=== PATIENT | female | born 1995 | race African-American/Black ===

== ENCOUNTER 2018-10-30 23:43 | Emergency (ER) | payer MEDICAID ==
--- NOTE | 2018-10-30 23:55 | Emergency Department Record ---
History of Present Illness - General Chief Complaint: Difficulty Breathing Stated Complaint: RIB PAIN/NAUSEA/HARD TO BREATHE Time Seen by Provider: 10/30/18 23:51 Source: Patient Mode of Arrival: Ambulatory Limitations: No limitations - History of Present Illness Onset/Timin -: Week(s) Severity: Moderate Severity scale (1-10): 9 Quality: Aching Consistency: Constant Improves With: Nothing Worsens With: Coughing - Related Data Home Medications Medication Instructions Recorded Confirmed Last Taken No Home Med [NO HOME MEDS] 10/30/18 10/30/18 Unknown Allergies Allergy/AdvReac Type Severity Reaction Status Date / Time No Known Drug Allergies Allergy Verified 10/30/18 23:52 Travel Screening - Travel/Exposure Within Last 30 Days Have you traveled within the last 30 days?: No - Travel/Exposure Within Last Year Have you traveled outside the [place] in the last year?: No - Additonal Travel Details Have you been exposed to anyone with a communicable illness?: No - Travel Symptoms Symptom Screening: None Review of Systems Constitutional: Denies: Chills, Fever, Malaise, Weakness Eyes: Denies: Eye discharge ENT: Denies: Congestion, Ear pain, Throat pain Respiratory: Reports: Dyspnea. Denies: Cough, Hemoptysis, Stridor, Wheezes Cardiovascular: Reports: Chest pain (rib pain on the right). Denies: Edema, Palpitations, Syncope Endocrine: Denies: Fatigue, Polydipsia, Polyuria Gastrointestinal: Reports: Nausea. Denies: Abdominal pain, Diarrhea, Vomiting Genitourinary: Denies: Dysuria, Urgency Musculoskeletal: Denies: Arthralgia, Back pain, Myalgia Skin: Denies: Bruising, Change in color, Rash Neurological: Denies: Headache, Numbness, Weakness Psychiatric: Denies: Anxiety Hematological/Lymphatic: Denies: Easy bleeding, Easy bruising Past Medical History - SOCIAL HISTORY Smoking Status: Never smoker Alcohol Use: None Drug Use: Occasional Drug Use Detail:: Marijuana - RESPIRATORY Hx Respiratory Disorders: Yes Hx Asthma: Yes - CARDIOVASCULAR Hx Cardio Disorders: Yes Comment:: murmur - NEURO Hx Neuro Disorders: Yes Hx Headaches: Yes - GI Hx GI Disorders: Yes Hx Reflux: Yes - Hx Genitourinary Disorders: No - ENDOCRINE Hx Endocrine Disorders: No - MUSCULOSKELETAL Hx Musculoskeletal Disorders: No - PSYCH Hx Psych Problems: Yes Hx Anxiety: Yes - HEMATOLOGY/ONCOLOGY Hx Hematology/Oncology Disorders: Yes Hx Anemia: Yes Hx Cancer: No Family Medical History Any Significant Family History?: Yes Physical Exam - General General Appearance: Alert, Oriented x3, Cooperative, No acute distress Limitations: No limitations - Head Head exam: Atraumatic, Normal inspection - Eye Eye exam: Normal appearance, PERRL. negative: Conjunctival injection, Scleral icterus - ENT ENT exam: Normal exam, Mucous membranes moist Ear exam: Normal external inspection Nasal Exam: Normal inspection Mouth exam: Normal external inspection Teeth exam: Normal inspection Throat exam: Normal inspection - Neck Neck exam: Normal inspection, Full ROM. negative: Lymphadenopathy, Tenderness - Cardiovascular Cardiovascular Exam: Regular rate, Normal rhythm, Normal heart sounds. negative: Diastolic murmur, Systolic murmur, Tachycardia Peripheral Pulses: 2+: Radial (R), Radial (L) - GI/Abdominal GI/Abdominal exam: Soft. negative: Distended, Guarding, Rebound, Rigid, Tenderness - Rectal Rectal exam: Deferred - exam: Deferred - Extremities Extremities exam: Normal inspection, Full ROM, Normal capillary refill. negative: Tenderness - Back Back exam: Denies: CVA tenderness (R), CVA tenderness (L) - Neurological Neurological exam: Alert, Oriented X3 - Psychiatric Psychiatric exam: Normal affect, Normal mood. negative: Agitated, Anxious - Skin Skin exam: Dry, Intact, Normal color, Warm Course Vital Signs 10/30/18 23:49 Temperature 98.6 F Pulse Rate [ 59 L Pulse Ox Probe] Respiratory 24 Rate Blood Pressure 125/74 [Left Arm] Pulse Ox 98 - Reevaluation(s) Reevaluation #1: Vitals reviewed No fever, tachycardia, or hypoxia 10/30/18 23:52 Disposition Quality - Blood Pressure Screening Does Patient Have Any of the Following: No Blood Pressure Classification: Pre-Hypertensive BP Reading Systolic Measurement: 125 Diastolic Measurement: 74 Screening for High Blood Pressure: < Pre-Hypertensive BP, F/U Documented > [G8950]
[2018-10-31] MEDS ORDERED: ONDANSETRON HCL IV 4 MG/2 ML VIAL IVP ONE (00:07)
[2018-10-31] MEDS ORDERED: 0.9 % SODIUM CHLORIDE 1,000 ML BAG IV ONE (00:07)
[2018-10-31] MEDS ORDERED: KETOROLAC 30 MG/ML VIAL IVP ONE (00:07)
--- NOTE | 2018-10-31 00:13 | Emergency Department Record ---
History of Present Illness - General Chief Complaint: Difficulty Breathing Stated Complaint: RIB PAIN/NAUSEA/HARD TO BREATHE Time Seen by Provider: 10/30/18 23:51 Source: Patient Mode of Arrival: Ambulatory Limitations: No limitations - History of Present Illness Initial Comments: 22 yo female presents with right sided abdominal pain for two weeks. The pain started mild two weeks ago and gradually has worsened. She for the first time vomited tonight. No fevers. The pain is in the RLQ to periumbilical area. She denies pain deeper in the pelvic area or suprapubic. The pain is only on the right. At times it shoots upward under her ribs on right. No fever. She denies vaginal bleeding or discharge. She was treated for Chlamydia in August and had follow up negative testing. No history of abdominal surgery. MD Complaint: Abdominal pain Onset/Timin -: Week(s) (2) Location: RLQ Radiation: RUQ, RLQ Migration to: RUQ, RLQ Severity: Moderate Severity scale (1-10): 9 Quality: Aching, Sharp, Stabbing Consistency: Constant Improves With: Rest Worsens With: Movement Associated Symptoms: Nausea - Related Data LMP Date: 09/10/18 LMP (females 10-50): 2 months ago Previous Rx's Medication Instructions Recorded Naproxen [Naprosyn] 500 mg PO Q12H #30 tab. 10/31/18 Ondansetron [Zofran Odt] 4 mg PO Q8H #15 tabmaria fernanda 10/31/18 Allergies Allergy/AdvReac Type Severity Reaction Status Date / Time No Known Drug Allergies Allergy Verified 10/30/18 23:52 Travel Screening - Travel/Exposure Within Last 30 Days Have you traveled within the last 30 days?: No - Travel/Exposure Within Last Year Have you traveled outside the [place] in the last year?: No - Additonal Travel Details Have you been exposed to anyone with a communicable illness?: No - Travel Symptoms Symptom Screening: None Review of Systems Constitutional: Denies: Chills, Fever, Malaise, Weakness Eyes: Denies: Eye discharge ENT: Denies: Congestion, Ear pain, Throat pain Respiratory: Denies: Cough, Dyspnea, Hemoptysis, Stridor, Wheezes Cardiovascular: Reports: Chest pain (occasionally the right sided abdominal pain shoots upward under the right ribs). Denies: Dyspnea on exertion, Edema, Palpi tations, Syncope Endocrine: Denies: Fatigue, Polydipsia, Polyuria Gastrointestinal: Reports: Diarrhea (2-3 episodes in the last ), Nausea. Denies: Abdominal pain, Vomiting Genitourinary: Reports: Abnormal menses. Denies: Dysuria, Frequency, Hematuria, Urgency Musculoskeletal: Denies: Arthralgia, Back pain, Myalgia Skin: Denies: Bruising, Change in color, Rash Neurological: Denies: Headache, Numbness, Weakness Psychiatric: Denies: Anxiety Hematological/Lymphatic: Denies: Easy bleeding, Easy bruising Past Medical History - SOCIAL HISTORY Smoking Status: Never smoker Alcohol Use: None Drug Use: Occasional Drug Use Detail:: Marijuana - RESPIRATORY Hx Respiratory Disorders: Yes Hx Asthma: Yes - CARDIOVASCULAR Hx Cardio Disorders: Yes Comment:: murmur - NEURO Hx Neuro Disorders: Yes Hx Headaches: Yes - GI Hx GI Disorders: Yes Hx Reflux: Yes - Hx Genitourinary Disorders: No - ENDOCRINE Hx Endocrine Disorders: No - MUSCULOSKELETAL Hx Musculoskeletal Disorders: No - PSYCH Hx Psych Problems: Yes Hx Anxiety: Yes - HEMATOLOGY/ONCOLOGY Hx Hematology/Oncology Disorders: Yes Hx Anemia: Yes Hx Cancer: No Family Medical History Any Significant Family History?: Yes Physical Exam - General General Appearance: Alert, Oriented x3, Cooperative, No acute distress Limitations: No limitations - Head Head exam: Atraumatic, Normocephalic, Normal inspection - Eye Eye exam: Normal appearance, PERRL. negative: Conjunctival injection, Scleral icterus - ENT ENT exam: Normal exam Ear exam: Normal external inspection Nasal Exam: Normal inspection Mouth exam: Normal external inspection - Neck Neck exam: Normal inspection - Respiratory Respiratory exam: Normal lung sounds bilaterally. negative: Accessory muscle use, Chest wall tenderness, Decreased breath sounds, Prolonged expiratory, Respiratory distress, Rhonchi, Stridor, Wheezes - Cardiovascular Cardiovascular Exam: Regular rate, Normal rhythm, Normal heart sounds - GI/Abdominal GI/Abdominal exam: Soft, Tenderness (tender periumbilical on the right and RLQ, the remainder of the abdomen is very soft and non tender, no distension). negative: Distended - Rectal Rectal exam: Deferred - exam: Deferred - Extremities Extremities exam: Normal inspection. negative: Pedal edema - Back Back exam: Reports: CVA tenderness (R), Tenderness. Denies: CVA tenderness (L), Paraspinal tenderness - Neurological Neurological exam: Alert, Oriented X3 - Psychiatric Psychiatric exam: Normal affect, Normal mood - Skin Skin exam: Dry, Intact, Normal color, Warm Course Vital Signs 10/30/18 23:49 Temperature 98.6 F Pulse Rate [ 59 L Pulse Ox Probe] Respiratory 24 Rate Blood Pressure 125/74 [Left Arm] Pulse Ox 98 - Reevaluation(s) Reevaluation #1: The vitals were reviewed. No tachycardia, hypoxia or fever 10/31/18 00:50 The labs results were reviewed There are no acute significant abnormalities of the CBC There are no acute significant abnormalities of the CMP The UA was reviewed. No signs of infection or significant acute abnormality The HCG is negative 10/31/18 01:[address] findings. No acute findings. Bilateral renal cysts noted. 10/31/18 01:41 [facility] records were reviewed from July. The patient presented with RLQ at that time as well. CT and US of the pelvis were normal. There are no obvious physical examination findings, lab results or CT findings to clearly explain the patient's abdominal pain. I recommend she follow up with PCP and RN MDS COORDINATOR. Medical Decision Making - Lab Data Result diagrams: 10/31/18 00:13 10/31/18 00:13 Disposition Disposition: Discharge Clinical Impression: Abdominal pain Qualifiers: Abdominal location: unspecified location Qualified Code(s): R10.9 - Unspecified abdominal pain Disposition: Home, Self-Care Condition: (1) Good Instructions: Abdominal Pain (ED) Additional Instructions: Call the family medicine clinic for the next available follow up appointment Review this ER visit and the tests performed with your new family doctor Return to the ER for a recheck if worse, any new concerns or questions Take the prescriptions provided as directed Prescriptions: Naproxen [Naprosyn] 500 mg PO Q12H #30 tab. Ondansetron [Zofran Odt] 4 mg PO Q8H #15 tabFernandorapdis Forms: Patient Portal Access Time of Disposition: :30 Quality - Quality Measures Quality Measures: N/A - Blood Pressure Screening Does Patient Have Any of the Following: No Blood Pressure Classification: Normal BP Reading Systolic Measurement: 106 Diastolic Measurement: 59 Screening for High Blood Pressure: < Normal BP, F/U Not Required > [G8783]
[2018-10-31 00:19] LABS: URINE APPEARANCE SL CLOUDY; URINE BILIRUBIN NEGATIVE (NEGATIVE); URINE BLOOD NEGATIVE (NEGATIVE); URINE COLOR ORANGE; URINE GLUCOSE (UA) NEGATIVE (NEGATIVE); URINE KETONE TRACE (NEGATIVE); URINE LEUKOCYTE ESTERASE NEGATIVE (NEGATIVE); URINE NITRITE NEGATIVE (NEGATIVE); URINE PROTEIN NEGATIVE (NEGATIVE)
[2018-10-31 00:20] LABS: ABSOLUTE NEUTROPHIL COUNT 5.67; BASO % 0.4 % (0-6); EOS % 3.3 % (0-6); GRAN % 53.3 % (47-80); HEMATOCRIT 44.7 % (35.0-47.0); HEMOGLOBIN 15.1 gm/dl (11.6-16.0); LYMPH % 34.4 % (16-45); MEAN CELL VOLUME 92.4 fl (81-97); MEAN CORPUSCULAR HEMOGLOBIN 31.2 pg (27-33); MEAN CORPUSCULAR HGB CONC 33.8 g/dl (32-36); MEAN PLATELET VOLUME 12.3 fl (7.4-10.4); MONO % 8.6 % (0-9); PLATELET COUNT 216 K/uL (130-400); RED BLOOD COUNT 4.84 M/uL (3.80-5.40); RED CELL DISTRIBUTION WIDTH 12.3 % (11.5-14.5); WHITE BLOOD COUNT W/O DIFF 10.6 K/uL (4.2-12.2)
[2018-10-31 00:33] LABS: BLOOD UREA NITROGEN 7 mg/dL (6-20); CREATININE 0.6 mg/dL (0.5-0.9); EST GLOMERULAR FILTRATION RATE > 60 mL/min
[2018-10-31 00:34] LABS: LIPASE 16 U/L (13-60); TOTAL PROTEIN 7.1 g/dL (6.6-8.7)
[2018-10-31 00:35] LABS: GLUCOSE,RANDOM 90 mg/dL (74-109)
[2018-10-31 00:38] LABS: ALB/GLOB RATIO 1.7 (1.1-1.8); ALBUMIN 4.5 g/dL (4.0-5.0); ALKALINE PHOSPHATASE 50 U/L (35-104); ALT/SGPT 12 U/L (<33); AST/SGOT 12 U/L (10.0-35.0)
[2018-10-31] MEDS ORDERED: ACETAMINOPHEN 1,000 MG/100 ML BTL IVPB ONE (01:19)
[2018-10-31] MEDS ORDERED: HYDROCODONE/APAP 7.5/325MG TABLET PO ONE (01:45)
--- NOTE | 2018-11-01 06:34 | CT SCAN REPORT ---
EXAM: CT SCAN ABDOMEN/PELVIS W CONTRAST HISTORY: RIGHT-SIDED ABDOMINAL PAIN FOR TWO WEEKS. TECHNIQUE: Routine CT images of the abdomen and pelvis were obtained following intravenous administration of contrast. Amount and type of contrast in the medical record. COMPARISON: None. FINDINGS: Visualized lung bases are unremarkable. The liver, gallbladder, pancreas, spleen, and adrenals are unremarkable. Kidneys enhance and excrete contrast normally. There are small bilateral renal cysts; largest on the right measuring 1.8 cm. No clear renal or ureteral calculi or hydronephrosis. The bowel is normal in caliber. Appendix has a normal appearance. No gastrointestinal inflammatory change. The bladder is unremarkable. Aorta enhances normally with contrast. No abdominal or pelvic lymphadenopathy. No free air or significant free fluid. No acute osseous abnormality. IMPRESSION: NO ACUTE INTRA-ABDOMINAL OR PELVIC ABNORMALITY. BILATERAL RENAL CYSTS. JOB NUMBER: [id number] MTDD
== END 2018-10-31 02:17 | disposition home or self-care (01) ==
LOC: ER 23:43
DX: R10.31 Right lower quadrant pain (principal); R10.11 Right upper quadrant pain; R11.0 Nausea
CPT/HCPCS: 74177; 80053; 81003; 83690; 84703; 85025; 96365; 96375; 99284; J1885; J2405; J7030